=== PATIENT | male | born 1945 | race Caucasian/White ===

== ENCOUNTER → 2016-10-02 | Outpatient (CLI) | payer MEDICARE, OTHER ==
[~2016-10-02] MED LIST: CALCIUM PO; FERROUS SU220 MG/52 PO; FOSAMAX PO; GABAPENTIN400 MG PO; METHOTREXATE2.5 MG PO; MULTIVITAMIN1 UDCAP PO; NEURONTIN PO; PLAQUENIL200 MG PO; POSTURE600 MG PO; PRILOSEC PO; REQUIP1 MG PO; RISPERIDONE PO; RISPERIDONE1 MG PO; SERTRALINE HCL100 MG PO; VITAMIN D 4001 UDTAB PO; VITAMIN D PO; ZOLOFT PO
--- NOTE | ~2016-10-02 | CR229 ---
[facility] A Service of [facility] RADIOLOGY TEXT RESULTS PATIENT: ESTELLE OSPINA LOCATION: [facility] : 49 UNIT #: [id number] AGE: [address]: GABE SANDOVAL MD SEX: M ORDER DR: [id number] [facility] [address] [place], [place] [address] [id number] O MR#: [id number] Acc #: [id number] NAME: ESTELLE OSPINA : 1945 SEX: M STUDY DATE/TIME: 10/02/2016 13:55 UNIT: [facility] ROOM: STUDY DESCRIPTION: CR Shoulder Min 2 View Lt Attending Physician: Gabe Sandoval M.D. Referring Physician: Gabe Sandoval M.D. Ordering Physician: Gabe Sandoval M.D. Primary Care Physician: Gabe Sandoval M.D. MEDICAL IMAGING REPORT This report is preliminary unless electronic signature is present EXAM Left shoulder. DATE OF EXAM 10/02/2016 INDICATION Left shoulder pain after 6 months. FINDINGS Internal and external rotated views of the left shoulder were obtained. The glenohumeral joint and AC joint appear normal. There are multiple old left rib fractures. IMPRESSION Multiple old left rib fractures. No acute shoulder injuries identified. Dictated by... Harry Ivan M.D. THIS IS AN ELECTRONICALLY VERIFIED REPORT Harry Ivan M.D. at 10/03/2016 7:07 AM KERRIE/[email or web address] TD: 10/02/2016 20:07 JOB #: [id number] MEDICAL IMAGING REPORT Page 1 of 1 COPY
--- NOTE | ~2016-10-02 | CR230 ---
[facility] A Service of [facility] & [facility] RADIOLOGY TEXT RESULTS PATIENT: ESTELLE OSPINA LOCATION: [facility] : 49 UNIT #: [id number] AGE: [address]: GABE SANDOVAL MD SEX: M ORDER DR: [id number] [place] [address] [place], [place] [address] [id number] O MR#: [id number] Acc #: [id number] NAME: ESTELLE OSPINA : 1945 SEX: M STUDY DATE/TIME: 10/02/2016 13:55 UNIT: [facility] ROOM: STUDY DESCRIPTION: CR Shoulder Min 2 View Rt Attending Physician: Gabe Sandoval M.D. Referring Physician: Gabe Sandoval M.D. Ordering Physician: Gabe Sandoval M.D. Primary Care Physician: Gabe Sandoval M.D. MEDICAL IMAGING REPORT This report is preliminary unless electronic signature is present EXAM Right shoulder HISTORY Right shoulder pain for 6 months. FINDINGS Internal and external rotation views of the right shoulder were obtained. They appear normal. There is some mild narrowing of the AC joint. IMPRESSION Mild narrowing of the AC joint otherwise normal. Dictated by... Harry Ivan M.D. THIS IS AN ELECTRONICALLY VERIFIED REPORT Harry Ivan M.D. at 10/03/2016 7:07 AM KERRIE/luis a TD: 10/02/2016 19:52 JOB #: [id number] MEDICAL IMAGING REPORT Page 1 of 1 COPY
== END | disposition home or self-care (01) ==
LOC: CRAD 13:37
DX: M25.511 Pain in right shoulder (principal)
CPT/HCPCS: 73030